=== PATIENT | male | born 1955 ===

== ENCOUNTER 2020-07-14 12:38 | Outpatient (CLI) | payer OTHER ==
[2020-07-14] MEDS ORDERED: NORVASC10 MG PO (15:53)
[2020-07-14] MEDS ORDERED: METFORMIN HCL1000 M2 PO (15:53)
[2020-07-14] MEDS ORDERED: COZAAR25 MG PO (15:53)
[2020-07-14] MEDS ORDERED: CARDURA1 MG PO (15:53)
[2020-07-14] MEDS ORDERED: EFFEXOR XR150 MG PO (15:54)
[2020-07-14] MEDS ORDERED: GABAPENTIN400 MG PO (15:54)
[2020-07-14] MEDS ORDERED: LIPITOR40 MG PO (15:54)
[2020-07-14] MEDS ORDERED: ALPRAZOLAM XR1 MG PO (15:55)
[2020-07-14] MEDS ORDERED: BUPROPION XL150 MG PO (15:55)
[2020-07-14] MEDS ORDERED: CELEBREX200MG PO (15:56)
== END 2020-07-14 13:25 | disposition home or self-care (01) ==
LOC: LAB 12:38
PROVIDERS: ATTEND Surgery
DX: U07.1 COVID-19 (principal); Z20.822 Contact with and (suspected) exposure to COVID-19

== ENCOUNTER 2020-07-21 06:13 | Day surgery (SDC) | payer OTHER ==
[~2020-07-21 06:13] MED LIST: ALPRAZOLAM XR1 MG PO; BUPROPION XL150 MG PO; CARDURA1 MG PO; CELEBREX200MG PO; COZAAR25 MG PO; EFFEXOR XR150 MG PO; GABAPENTIN400 MG PO; LIPITOR40 MG PO; METFORMIN HCL1000 M2 PO; NORVASC10 MG PO
[2020-07-21] MEDS ORDERED: PERCOCET 5-3251 EACH PO (12:51)
== END 2020-07-21 16:25 | disposition home or self-care (01) ==
LOC: CIR.AMB 06:13
PROVIDERS: ATTEND Surgery
DX: N52.31 Erectile dysfunction following radical prostatectomy (principal)
CPT/HCPCS: 54405; C1813